=== PATIENT | female | born 1960 | race African-American/Black ===

== ENCOUNTER 2019-09-21 13:37 | Emergency (ER) | payer BC ==
--- NOTE | 2019-09-21 14:42 | RAD REPORT ---
EXAM DESCRIPTION: CT - Head Brain Wo Cont - 09/21/2019 2:32 pm CLINICAL HISTORY: Numbness COMPARISON: 2013 TECHNIQUE: Computed axial tomography of the head was obtained. IV contrast was not requested. All CT scans are performed using dose optimization technique as appropriate and may include automated exposure control or mA/KV adjustment according to patient size. FINDINGS: An intracranial bleed is not seen . The ventricles are normal in caliber. No extra-axial fluid collection is noted. Fluid within the sinuses/ mastoids is not seen. IMPRESSION: No acute intracranial abnormality is seen. If patient's symptoms persist MRI of the bra in would be recommended.
[2019-09-21 15:11] LABS: Absolute Lymphocytes (CBC) 2.2 K/uL (0.7-4.9); Basophils % 0.6 % (0-1.3); Hematocrit 36.7 % (36.0-45.0); Lymphocytes % 24.6 % (15.3-44.8); MPV 7.5 fL (7.6-11.3); RBC Red Blood Cell Count 4.31 M/uL (3.86-4.86)
[2019-09-21 15:23] LABS: Protime INR 0.96
[2019-09-21 15:28] LABS: Potassium 3.8 mmol/L (3.5-5.1)
--- NOTE | 2019-09-21 15:30 | RAD REPORT ---
EXAM DESCRIPTION: RAD - Humerus Right - 09/21/2019 2:48 pm CLINICAL HISTORY: Right arm pain FINDINGS: No fracture is seen osteoporosis. Small calcific density along the superolateral aspect of humerus may indicate calcific tendinitis 5 millimeter lucency within the lateral humeral head is nonspecific. Follow-up x-ray in 3 months fernie mmended to assess stability
[2019-09-21] MEDS ORDERED: CYCLOBENZAPRINE 10 MG TAB ONE (16:02)
[2019-09-21] MEDS ORDERED: KETOROLAC 30 MG/ML INJ ONE (16:03)
[2019-09-21] MEDS ORDERED: cloNIDine HCL 0.1 MG TAB ONE (16:07)
--- NOTE | 2019-09-21 16:52 | EDPHYS ---
Physician Documentation [facility] Name: Carly Buchanan Age: 58 yrs Sex: Female : 1960 Arrival Date: 09/21/2019 Time: 13:41 Bed 14 Private MD: Kamilah Duff H ED Physician Berkley Otero HPI: 09/21 14:18 This 58 yrs old Black Female presents to ER via Ambulatory with complaints of Left Arm pm1 Pain. 14:18 The patient or guardian complains of pain, that is acute. The complaints affect the pm1 left bicep. Context: The problem was sustained at work, resulted from Pulling herself up the stairs . Onset: The symptoms/episode began/occurred this morning, at 10:10. Treatment prior to arrival includes: no previous treatment. Modifying factors: The symptoms are alleviated by remaining still, the symptoms are aggravated by bending arm. Associated signs and symptoms: Pertinent positives: pain, of the left bicep, Pertinent negatives: decreased range of motion, deformity, numbness, swelling, tingling, weakness. Severity of symptoms: in the emergency department the symptoms are actually worse. The patient has not experienced similar symptoms in the past. Patient was walking up the stairs holding a prisoner with her right hand while she was pulling herself up with her left hand. As she was pulling herself up with her left hand she pain to her left lower biceps and a sensation of a marble rolling down her arm. Historical: - Allergies: 13:56 No Known Allergies; aj1 - Home Meds: 13:56 metformin 500 mg Oral tab 1 tab 2 times per day [Active]; glipizide 10 mg Oral tab 1 aj1 tab once daily [Active]; pioglitazone 15 mg oral tab 1 tab once daily [Active]; pravastatin 40 mg oral tab 1 tab once daily [Active]; gabapentin 600 mg oral tab 1 tab 3 times per day [Active]; buspirone 10 mg Oral tab 1 tab 2 times per day [Active]; clonidine HCl 0.2 mg Oral tab 1 tab 2 times per day [Active]; - PMHx: 13:56 Diabetes - NIDDM; Hypertension; Hyperlipidemia; neuropathy; Anxiety; aj1 - Immunization history:: Flu vaccine is not up to date. - Social history:: Smoking status: Patient/guardian denies using tobacco. - Ebola Screening: : Patient denies travel to an Ebola-affected area in the 21 days before illness onset. ROS: 14:18 Constitutional: Negative for fever, chills, and weight loss. pm1 14:18 Eyes: Negative for injury, pain, redness, and discharge, ENT: Negative for injury, pm1 pain, and discharge, Neck: Negative for injury, pain, and swelling, Cardiovascular: Negative for chest pain, palpitations, and edema, Respiratory: Negative for shortness of breath, cough, wheezing, and pleuritic chest pain, Abdomen/GI: Negative for abdominal pain, nausea, vomiting, diarrhea, and constipation, Back: Negative for injury and pain, : Negative for injury, bleeding, discharge, and swelling. 14:18 Skin: Negative for injury, rash, and discoloration, Neuro: Negative for headache, weakness, numbness, tingling, and seizure. 14:18 MS/extremity: Positive for pain, of the left bicep, Negative for decreased range of motion, deformity. Exam: 14:18 Constitutional: This is a well developed, well nourished patient who is awake, alert, pm1 and in no acute distress. Head/Face: Normocephalic, atraumatic. Neck: Trachea midline, no thyromegaly or masses palpated, and no cervical lymphadenopathy. Supple, full range of motion without nuchal rigidity, or vertebral point tenderness. No Meningismus. Chest/axilla: Normal chest wall appearance and motion. Nontender with no deformity. No lesions are appreciated. Cardiovascular: Regular rate and rhythm with a normal S1 and S2. No gallops, murmurs, or rubs. Normal PMI, no JVD. No pulse deficits. Respiratory: Lungs have equal breath sounds bilaterally, clear to auscultation and percussion. No rales, rhonchi or wheezes noted. No increased work of breathing, no retractions or nasal flaring. Abdomen/GI: Soft, non-tender, with normal bowel sounds. No distension or tympany. No guarding or rebound. No evidence of tenderness throughout. Back: No spinal tenderness. No costovertebral tenderness. Full range of motion. Skin: Warm, dry with normal turgor. Normal color with no rashes, no lesions, and no evidence of cellulitis. 14:18 Musculoskeletal/extremity: Extremities: grossly normal except: noted in the focal point pain to distal portion of left bicep: pain reproduced with flexing left biceps and resisting flexion with downward pressure , ROM: intact in all extremities, Circulation is intact in all extremities. Vital Signs: 13:56 BP 216 / 105; Pulse 93; Resp 18; Temp 99.5; Pulse Ox 98% ; Weight 91.63 kg (R); Height aj1 5 ft. 2 in. (157.48 cm) (R); Pain 7/10; 15:18 BP 197 / 106; Pulse 88; Resp 17; Pulse Ox 100% on R/A; rv 13:56 Body Mass Index 36.95 (91.63 kg, 157.48 cm) aj1 MDM: 14:07 Patient medically screened. pm1 15:42 Data reviewed: vital signs. Data interpreted: Pulse oximetry: on room air is 100 %. pm1 Interpretation: normal. 16:04 Counseling: I had a detailed discussion with the patient and/or guardian regarding: the pm1 historical points, exam findings, and any diagnostic results supporting the discharge/admit diagnosis, lab results, radiology results, the need for outpatient follow up, for definitive care, With PCP for BP management. Patient takes her clonidine at night time only instead of BID. Morning dose makes her sleepy so she does not take it, to return to the emergency department if symptoms worsen or persist or if there are any questions or concerns that arise at home. 09/21 14:18 Order name: Basic Metabolic Panel; Complete Time: 15:41 pm1 09/21 14:18 Order name: CBC with Diff; Complete Time: 15:41 pm1 09/21 14:18 Order name: CT Head Brain wo Cont; Complete Time: 15:41 pm1 09/21 14:18 Order name: Humerus Right XRAY; Complete Time: 15:41 pm1 09/21 14:18 Order name: Protime (+inr); Complete Time: 15:41 pm1 09/21 14:18 Order name: Ptt, Activated; Complete Time: 15:41 pm1 09/21 14:18 Order name: EKG; Complete Time: 14:20 pm1 09/21 14:18 Order name: EKG - Nurse/Tech; Complete Time: 14:48 pm1 09/21 14:18 Order name: IV Saline Lock; Complete Time: 15:33 pm1 09/21 14:18 Order name: Labs collected and sent; Complete Time: 15:33 pm1 09/21 16:51 Order name: Sling; Complete Time: 17:46 pm1 Administered Medications: 16:05 Drug: Flexeril 10 mg Route: PO; rv 16:05 Drug: TORadol - Ketorolac 15 mg Route: IVP; Site: right antecubital; rv 16:05 Drug: cloNIDine 0.2 mg Route: PO; rv Disposition: 09/21/19 16:50 Discharged to Home. Impression: Strain of muscle, fascia and tendon of other parts of biceps, left arm, Essential (primary) hypertension. - Condition is Stable. - Discharge Instructions: Hypertension, Muscle Strain, How to Take Your Blood Pressure, [id number], DASH Eating Plan, Managing Your Hypertension. - Prescriptions for Tylenol- Codeine #3 300-30 mg Oral Tablet - take 2 tablets by ORAL route every 6 hours As needed; 20 tablet. Cyclobenzaprine 10 mg Oral Tablet - take 1 tablet by ORAL route every 8 hours As needed; 30 tablet. - Work release form, Medication Reconciliation Form, Thank You Letter, Antibiotic Education, Prescription Opioid Use form. - Follow up: Emergency Department; When: As needed; Reason: Worsening of condition. Follow up: Private Physician; When: 2 - 3 days; Reason: Recheck today's complaints, Continuance of care, Re-evaluation by your physician. - Problem is new. - Symptoms have improved. Addendum: 09/23/2019 15:15 Co-signature as Attending Physician, Berkley Otero MD. m a2 Signatures: Dispatcher [employer] Joelle Mujica RN RN aj1 Corey Burgess NP DRILL HAND pm1 María Bentley RN RN hb Berkley Otero MD MD ma2 Baron Rogers RN RN rv Corrections: (The following items were deleted from the chart) 09/21 17:52 16:50 09/21/2019 16:50 Discharged to Home. Impression: Strain of muscle, fascia and hb tendon of other parts of biceps, left arm; Essential (primary) hypertension. Condition is Stable. Forms are Medication Reconciliation Form, Thank You Letter, Antibiotic Education, Prescription Opioid Use. Follow up: Emergency Department; When: As needed; Reason: Worsening of condition. Follow up: Private Physician; When: 2 - 3 days; Reason: Recheck today's complaints, Continuance of care, Re-evaluation by your physician. Problem is new. Symptoms have improved. pm1
--- NOTE | 2019-09-21 16:52 | ER ---
Nurse's Notes [facility] Name: Carly Buchanan Age: 58 yrs Sex: Female : 1960 Arrival Date: 09/21/2019 Time: 13:41 Bed 14 Private MD: Kamilah Duff H Diagnosis: Strain of muscle, fascia and tendon of other parts of biceps, left arm;Essential (primary) hypertension Presentation: 09/21 13:51 Presenting complaint: Patient states: She was walking up the stairs holding a rail and aj1 suddenly she felt something "like a marble" run up her arm. Patient reports burning pain from the left shoulder down to her left wrist. Reports that the pain started at 10:10, and has gotten progressively worse since then. Transition of care: patient was not received from another setting of care. Onset of symptoms was September 21, 2019. Risk Assessment: Do you want to hurt yourself or someone else? Patient reports no desire to harm self or others. Initial Sepsis Screen: Does the patient meet any 2 criteria? No. Patient's initial sepsis screen is negative. Does the patient have a suspected source of infection? No. Patient's initial sepsis screen is negative. Care prior to arrival: None. 13:51 Method Of Arrival: Ambulatory aj1 13:51 Acuity: EDIN 2 aj1 Triage Assessment: 13:56 General: Appears in no apparent distress. uncomfortable, Behavior is calm, cooperative, aj1 appropriate for age. Pain: Complains of pain in left arm. Neuro: Level of Consciousness is awake, alert, obeys commands. Cardiovascular: Patient's skin is warm and dry. Respiratory: Airway is patent Respiratory effort is even, unlabored, Respiratory pattern is regular, symmetrical. Historical: - Allergies: 13:56 No Known Allergies; aj1 - Home Meds: 13:56 metformin 500 mg Oral tab 1 tab 2 times per day [Active]; glipizide 10 mg Oral tab 1 aj1 tab once daily [Active]; pioglitazone 15 mg oral tab 1 tab once daily [Active]; pravastatin 40 mg oral tab 1 tab once daily [Active]; gabapentin 600 mg oral tab 1 tab 3 times per day [Active]; buspirone 10 mg Oral tab 1 tab 2 times per day [Active]; clonidine HCl 0.2 mg Oral tab 1 tab 2 times per day [Active]; - PMHx: 13:56 Diabetes - NIDDM; Hypertension; Hyperlipidemia; neuropathy; Anxiety; aj1 - Immunization history:: Flu vaccine is not up to date. - Social history:: Smoking status: Patient/guardian denies using tobacco. - Ebola Screening: : Patient denies travel to an Ebola-affected area in the 21 days before illness onset. Screenin:13 Abuse screen: Denies threats or abuse. Denies injuries from another. Nutritional rv screening: No deficits noted. Tuberculosis screening: No symptoms or risk factors identified. Fall Risk None identified. Assessment: 14:12 General: Appears in no apparent distress. comfortable, Behavior is calm, cooperative. rv Pain: Complains of pain in left arm. Neuro: Level of Consciousness is awake, alert, obeys commands, Oriented to person, place, time, situation. Cardiovascular: Patient's skin is warm and dry. Respiratory: Airway is patent. Musculoskeletal: Range of motion: intact in all extremities, Swelling absent. Vital Signs: 13:56 BP 216 / 105; Pulse 93; Resp 18; Temp 99.5; Pulse Ox 98% ; Weight 91.63 kg (R); Height aj1 5 ft. 2 in. (157.48 cm) (R); Pain 7/10; 15:18 BP 197 / 106; Pulse 88; Resp 17; Pulse Ox 100% on R/A; rv 13:56 Body Mass Index 36.95 (91.63 kg, 157.48 cm) aj1 ED Course: 13:41 Patient arrived in ED. mr 13:41 Kamilah Duff DO is Private Physician. mr 13:53 Triage completed. aj1 14:00 Baron Rogers, JOSE is Primary Nurse. rv 14:06 Corey Burgess NP is PHCP. pm1 14:06 Berkley Otero MD is Attending Physician. pm1 14:13 Patient has correct armband on for positive identification. Bed in low position. Call rv light in reach. Side rails up X 1. Pulse ox on. NIBP on. 14:13 Patient placed in the treatment room, on a stretcher, on pulse oximetry, Patient rv notified of wait time. 14:32 CT completed. Patient tolerated procedure well. Patient moved back from CT. mw3 14:34 CT Head Brain wo Cont In Process Unspecified. EDMS 14:51 Humerus Right XRAY In Process Unspecified. EDMS Administered Medications: 16:05 Drug: Flexeril 10 mg Route: PO; rv 16:05 Drug: TORadol - Ketorolac 15 mg Route: IVP; Site: right antecubital; rv 16:05 Drug: cloNIDine 0.2 mg Route: PO; rv Outcome: 16:50 Discharge ordered by MD. pm1 17:52 Patient left the ED. Signatures: Dispatcher [employer] EDMS Joelle Armstrong RN RN aj1 Monica Lindsay mr JeniferCorey, FLOATMAN FLOATMAN pm1 María Bentley RN RN Sudha Sosa mw3 Baron Rogers RN RN rv Corrections: (The following items were deleted from the chart) 14:00 13:51 Acuity: EDIN 3 aj1 aj1
--- NOTE | 2019-09-23 20:51 | EKG ---
Test Date: 2019-09-21 Test Time: 15:06:06 Juice Tester: FESTUS MEASUREMENT RESULTS: Intervals: Rate: 89 MO: 148 QRSD: 74 QT: 382 QTc: 464 [place]: P: 30 MO: 148 QRS: -5 T: 86 INTERPRETIVE STATEMENTS: Normal sinus rhythm Minimal voltage criteria for LVH, may be normal variant Borderline ECG Compared to ECG 05/07/2014 13:44:09 Left ventricular hypertrophy now present Prolonged QT interval no longer present Electronically Signed On 09-23-19 20:47:09 HOOKER LASTER by Geo Alcocer
== END 2019-09-21 17:52 | disposition home or self-care (01) ==
LOC: ER 13:37
DX: S46.212A Strain of muscle, fascia and tendon of other parts of biceps, left arm, initial encounter (principal); X58.XXXA Exposure to other specified factors, initial encounter; I10 Essential (primary) hypertension; E11.9 Type 2 diabetes mellitus without complications; E78.5 Hyperlipidemia, unspecified; F41.9 Anxiety disorder, unspecified
CPT/HCPCS: 36415; 70450; 80048; 85025; 85610; 85730; 93005; 96374; 99284

== ENCOUNTER 2020-03-01 21:04 | Emergency (ER) | payer BC ==
--- OUTSIDE RECORDS SUMMARY | 2020-03-01 21:06 | XMS REPORT | Clinical Summary ---
:1960 Author Organization [facility] Address [address] [place] [address] Care Team Providers Name Role Phone DuffDamion hylton Primary Care Provider Allergies No Known Allergies Medications Medication Sig Dispensed Refills Start Date End Date Status pravastatin 0 08/20/2018 Active (PRAVACHOL) 40 MG tablet lisinopril-hydrochloro 0 08/20/2018 Active thiazide (PRINZIDE,ZESTORETIC) 20-12.5 mg per tablet diclofenac (VOLTAREN) Apply 2 g 1 Tube 2 10/04/2018 Active 1 % gel topically 4 (four) times a day. Apply 2 gms to affected area 4 times a day metformin HCl Take by mouth. 0 A ctive (METFORMIN ORAL) GABAPENTIN ORAL Take by mouth. 0 Active GLIPIZIDE ORAL Take by mouth. 0 Active pioglitazone HCl Take by mouth. 0 Active (PIOGLITAZONE ORAL) cyanocobalamin, Take by mouth. 0 Active vitamin B-12, (B-12 DOTS ORAL) BIOTIN ORAL Take by mouth. 0 Act dannie cholecalciferol, Take 2,000 Units 0 Active vitamin D3, (VITAMIN by mouth daily. D3) 2,000 unit capsule capsule vitamin E acetate Take by mouth. 0 Active (VITAMIN E ORAL) CALCIUM ORAL Take by mouth. 0 Ac tive SIMETHICONE ORAL Take by mouth. 0 Active Active Problems Problem Noted Date Carpal tunnel syndrome of right wrist 01/01/2019 Overview: Added automatically from request for shkaa lazaro [id number] Family History Relation Name Status Comments Father Mother Social History Tobacco Use Types Packs/Day Years Used Date Never Smoker Smokeless Tobacco: Never Used Alcohol Use Drinks/Week oz/Week Comments No Alcohol Habits Answer Date Recorded How often do you have a drink containing alcohol? Never 10/04/2018 How many drinks containing alcohol do you have on a typical Not asked day when you are drinking? How often do you have six or more drinks on one occasion? No t asked Sex Assigned at Date Recorded Not on file Job Start Date Occupation Industry Not on file Not on file Not on file Travel History Travel Start Travel End No recent travel history available. Last Filed Vital Signs Not on file Plan of Treatment Health Maintenance Due Date Last Done Comments CERVICAL CANCER SCREENING 1980 BREAST CANCER SCREENING 2009 COLONOSCOPY SCREENING 2009 SHINGLES VACCINES (#1) 2009 INFLUENZA VACCINE 05/02/2020 Results Not on fileafter 03/01/2019 [phone] [address] MBERCLEONARDO Gage y [address] ([address]) [address], [place] [address] Advance Directives For more information, please contact: [phone] Type Date Recorded Patient Tripe Scraper Explanati on Advance Directives, 01/01/2019 4:14 PM Living Will and Medical Power of Farm Boss
[2020-03-01 21:58] LABS: Urine Blood NEGATIVE (NEG); Urine Glucose TRACE (NEG); Urine Protein NEGATIVE (NEG)
[2020-03-01 22:08] LABS: Absolute Lymphocytes (CBC) 2.7 K/uL (0.7-4.9); Basophils % 0.6 % (0-1.3); Hematocrit 33.1 % (36.0-45.0); Lymphocytes % 40.4 % (15.3-44.8); MPV 7.6 fL (7.6-11.3); RBC Red Blood Cell Count 3.83 M/uL (3.86-4.86)
[2020-03-01 22:26] LABS: ALT/SGPT 15 U/L (12-78); AST/SGOT 18 U/L (15-37); Albumin 3.3 g/dL (3.4-5.0); Alkaline Phosphatase 88 U/L (45-117); BUN Blood Urea Nitrogen 22 mg/dL (7-18); Bicarbonate 30 mmol/L (21-32); Bilirubin Direct < 0.1 mg/dL (0-0.2); Bilirubin Total 0.2 mg/dL (0.2-1.0); Glucose Level 194 mg/dL (74-106); Lipase 119 U/L (73-393); Potassium 3.3 mmol/L (3.5-5.1); Protein, Total 7.1 g/dL (6.4-8.2); Sodium Level 137 mmol/L (136-145)
[2020-03-01] MEDS ORDERED: MORPHINE 4 MG/ML SYR ONE (23:17)
[2020-03-01] MEDS ORDERED: ONDANSETRON 4 MG/2 ML VIAL ONE (23:17)
[2020-03-01] MEDS ORDERED: POTASSIUM CL SA 10 MEQ TAB PO ONE (23:17)
[2020-03-02 00:44] VITALS: TEMP 97.3
[2020-03-02 00:46] VITALS: BP 149/88; O2SAT 98
--- NOTE | 2020-03-02 16:02 | RAD REPORT ---
EXAM DESCRIPTION: CT - Abdomen Pelvis W Contrast - 03/02/2020 12:41 am CLINICAL HISTORY: ABD PAIN COMPARISON: None Available. TECHNIQUE: CT of the abdomen and pelvis performed following IV administration of iodinated contrast. FINDINGS: Lung Bases: The visualized lung bases are clear. Bones: Multilevel endplate spondylosis, facet arthropathy, disc height narrowing of the visualized th oracic and lumbar spine. Moderate degenerative change of the hips. Visualized right ribs are intact. Abdomen: Liver: The liver has normal size and density. No intrahepatic biliary dilatation. Gallbladder: No calcified gallstones. Spleen, Pancreas, and Adrenal Glands: The spleen, pancreas, and adrenal glands are unremarkable. Kidneys: No hydronephrosis or obstructing calculus. Nonobstructing left nephrolithiasis. Vasculature: Aortoiliac atherosclerosis. IVC The portal vein is patent. The proximal visceral and r enal arteries are patent. Stomach: The stomach and duodenum have normal course. Other: No free intraperitoneal air. No free fluid or lymphadenopathy. Pelvis: Bladder: Urinary bladder is unremarkable. Bowel: No dilated loops of large or small bowel. Appendix: Normal appendix. Pelvis: Uterus is not enlarged. IMPRESSION: 1. No acute inflammatory or obstructive process identified. 2. Punctate nonobstructing left nephrolithiasis. This exam was performed according to our departmental dose-optimization program, which includes autom ated exposure control, adjustment of the mA and/or kV according to patient size and/or use of iterati ve reconstruction technique. Electronically signed by: Ayden Gerardo 03/01/2020 11:37 PM CDT Due to temporary technical issues with the PACS/Fluency reporting system, reports are being signed by the in house radiologistwithout review asa courtesy toensure prompt reporting. The interpreting radi ologist is fully responsible for the content of the report.
--- NOTE | 2020-03-02 19:31 | EDPHYS ---
Physician Documentation [facility] Name: Carly Buchanan Age: 59 yrs Sex: Female : 1960 Arrival Date: 03/01/2020 Time: 21:06 Bed 6 Private MD: ED Physician James Spence HPI: 03/01 22:20 This 59 yrs old Black Female presents to ER via Ambulatory with complaints of Side Pain pkl rt side. 22:20 The patient presents with abdominal pain right mid abdomen. Onset: The symptoms/episode pkl began/occurred 2.5 week(s) ago. The symptoms do not radiate. Associated signs and symptoms: none. Historical: - Allergies: 21:24 No Known Allergies; ca1 - PMHx: 21:24 Anxiety; Diabetes - NIDDM; Hyperlipidemia; Hypertension; neuropathy; ca1 - Immunization history:: Adult Immunizations up to date. - Social history:: Smoking status: Patient denies any tobacco usage or history of. ROS: 22:20 Eyes: Negative for injury, pain, redness, and discharge, ENT: Negative for injury, pkl pain, and discharge, Neck: Negative for injury, pain, and swelling, Cardiovascular: Negative for chest pain, palpitations, and edema, Respiratory: Negative for shortness of breath, cough, wheezing, and pleuritic chest pain. 22:20 Abdomen/GI: Positive for abdominal pain, of the right mid abdomen. 22:20 Back: Negative for injury or acute deformity, acute changes. 22:20 : Negative for urinary symptoms. 22:20 MS/extremity: Negative for acute changes. 22:20 Skin: Negative for rash. 22:20 Neuro: Negative for altered mental status. Exam: 22:20 Head/Face: Normocephalic, atraumatic. Eyes: Pupils equal round and reactive to light, pkl extra-ocular motions intact. Lids and lashes normal. Conjunctiva and sclera are non-icteric and not injected. Cornea within normal limits. Periorbital areas with no swelling, redness, or edema. ENT: Nares patent. No nasal discharge, no septal abnormalities noted. Tympanic membranes are normal and external auditory canals are clear. Oropharynx with no redness, swelling, or masses, exudates, or evidence of obstruction, uvula midline. Mucous membranes moist. Neck: Trachea midline, no thyromegaly or masses palpated, and no cervical lymphadenopathy. Supple, full range of motion without nuchal rigidity, or vertebral point tenderness. No Meningismus. Chest/axilla: Normal chest wall appearance and motion. Nontender with no deformity. No lesions are appreciated. Cardiovascular: Regular rate and rhythm with a normal S1 and S2. No gallops, murmurs, or rubs. Normal PMI, no JVD. No pulse deficits. Respiratory: Lungs have equal breath sounds bilaterally, clear to auscultation and percussion. No rales, rhonchi or wheezes noted. No increased work of breathing, no retractions or nasal flaring. Back: No spinal tenderness. No costovertebral tenderness. Full range of motion. Skin: Warm, dry with normal turgor. Normal color with no rashes, no lesions, and no evidence of cellulitis. MS/ Extremity: Pulses equal, no cyanosis. Neurovascular intact. Full, normal range of motion. Neuro: Awake and alert, GCS 15, oriented to person, place, time, and situation. Cranial nerves II-XII grossly intact. Motor strength 5/5 in all extremities. Sensory grossly intact. Cerebellar exam normal. Normal gait. 22:20 Abdomen/GI: Bowel sounds: normal, Palpation: soft, mild abdominal tenderness, in the posterior aspect of right lateral abdomen. Vital Signs: 21:20 BP 154 / 93; Pulse 89; Resp 16 S; Temp 97.3(TE); Pulse Ox 100% on R/A; Weight 91.17 kg ca1 (R); Height 5 ft. 2 in. (157.48 cm) (R); Pain 8/10; 23:44 BP 147 / 71; Pulse 78; Resp 18; Pulse Ox 99% on R/A; mg2 03/02 00:37 BP 149 / 88; Pulse 80; Resp 18; Pulse Ox 98% ; ea 03/01 21:20 Body Mass Index 36.76 (91.17 kg, 157.48 cm) ca1 MDM: 03/01 21:52 Patient medically screened. pkl 03/02 00:03 Data reviewed: vital signs, nurses notes, lab test result(s), radiologic studies, CT pkl scan. ED course: Patient feeling better. Discussed lab. and CT Scan results with patient. Advised to follow up with PCP in 2 to 3 days. Patient understood instructions. 03/01 21:54 Order name: Basic Metabolic Panel; Complete Time: 23:08 03/01 21:54 Order name: CBC with Diff; Complete Time: 23:08 03/01 21:54 Order name: Hepatic Function; Complete Time: 23:08 03/01 21:54 Order name: Lipase; Complete Time: 23:08 03/01 21:54 Order name: Urine Dipstick--Ancillary (enter results); Complete Time: 22:03 mn 03/01 22:04 Order name: CT Abd/Pelvis - IV Contrast Only pkl 03/01 21:54 Order name: IV Saline Lock; Complete Time: 22:04 03/01 21:54 Order name: Labs collected and sent; Complete Time: :04 Administered Medications: 03/01 23:15 Drug: morphine 4 mg Route: IVP; Site: right antecubital; mg2 03/02 00:30 Follow up: Response: No adverse reaction; Pain is decreased; RASS: Alert and Calm (0) 03/01 23:15 Drug: Zofran (Ondansetron) 4 mg Route: IVP; Site: right antecubital; mg2 03/02 00:30 Follow up: Response: No adverse reaction 03/01 23:15 Drug: Potassium Chloride 20 mEq Route: PO; mg2 03/02 00:30 Follow up: Response: No adverse reaction Disposition: 03/02/20 00:06 Discharged to Home. Impression: Abdominal pain. - Condition is Stable. - Prescriptions for Ultram 50 mg Oral Tablet - take 1 tablet by ORAL route every 8 hours As needed; 12 tablet. - Work release form, Medication Reconciliation Form, Thank You Letter, Antibiotic Education, Prescription Opioid Use form. - Follow up: Private Physician; When: 2 - 3 days; Reason: Re-evaluation by your physician. - Problem is new. - Symptoms have improved. Signatures: Dispatcher [employer] EDMS James Spence MD MD pkl Antunez, Elena, RN RN ea Gardose, Michele RN JOSE mg2 Evelia Demarco RN RN ca1 Corrections: (The following items were deleted from the chart) 00:38 00:06 03/02/2020 00:06 Discharged to Home. Impression: Abdominal pain. Condition is ea Stable. Forms are Medication Reconciliation Form, Thank You Letter, Antibiotic Education, Prescription Opioid Use. Follow up: Private Physician; When: 2 - 3 days; Reason: Re-evaluation by your physician. Problem is new. Symptoms have improved. pkl
--- NOTE | 2020-03-02 19:31 | ER ---
Nurse's Notes [facility] Name: Carly Buchanan Age: 59 yrs Sex: Female : 1960 Arrival Date: 03/01/2020 Time: 21:06 Bed 6 Private MD: Diagnosis: Abdominal pain Presentation: 03/01 21:20 Chief complaint: Patient states: Pain on the R side below rib cage since 2.5 weeks. ca1 Worst in the morning. Pt states, "the pain is like indigestion and gas", "tonight I couldn't get comfortable and I couldn't sleep from the pain". Denies radiating pain. Denies urinary symptoms. Denies N/V/diarrhea/fever. Coronavirus screen: Proceed with normal triage. Patient denies a cough. Patient denies shortness of breath or difficulty breathing. Patient denies measured and/or subjective temperature greater than 100.4F prior to today's visit. Patient denies travel on a cruise ship or to a country the [facility] currently lists as an affected area. Patient denies contact with known and/or suspected case of COVID-19. Ebola Screen: Patient negative for fever greater than or equal to 101.5 degrees Fahrenheit, and additional compatible Ebola Virus Disease symptoms Patient denies exposure to infectious person. Patient denies travel to an Ebola-affected area in the 21 days before illness onset. No symptoms or risks identified at this time. Initial Sepsis Screen: Does the patient meet any 2 criteria? No. Patient's initial sepsis screen is negative. Does the patient have a suspected source of infection? No. Patient's initial sepsis screen is negative. Risk Assessment: Do you want to hurt yourself or someone else? Patient reports no desire to harm self or others. Onset of symptoms was March 01, 2020. 21:20 Method Of Arrival: Ambulatory ca1 21:20 Acuity: EDIN 3 ca1 Historical: - Allergies: 21:24 No Known Allergies; ca1 - PMHx: 21:24 Anxiety; Diabetes - NIDDM; Hyperlipidemia; Hypertension; neuropathy; ca1 - Immunization history:: Adult Immunizations up to date. - Social history:: Smoking status: Patient denies any tobacco usage or history of. Screenin:49 Abuse screen: Denies threats or abuse. Nutritional screening: No deficits noted. ea Tuberculosis screening: No symptoms or risk factors identified. Fall Risk None identified. Assessment: 21:51 General: Appears uncomfortable, Behavior is appropriate for age. Pain: Complains of ea pain in posterior aspect of right lateral abdomen. Neuro: Level of Consciousness is awake, alert, obeys commands, Oriented to person, place, time. Cardiovascular: Respiratory: Airway is patent Respiratory effort is even, unlabored, Respiratory pattern is regular, symmetrical. GI: Patient currently denies diarrhea, nausea, vomiting. Derm: Skin is pink, warm \\T\\ dry. 23:06 Reassessment: Patient appears in no apparent distress at this time. No changes from mg2 previously documented assessment. Patient and/or family updated on plan of care and expected duration. Pain level reassessed. patient just came back from ct scan. 03/02 00:34 Reassessment: Patient and/or family updated on plan of care and expected duration. Pain ea level reassessed. Patient is alert, oriented x 3, equal unlabored respirations, skin warm/dry/pink. Discharge instruction given to patient, verbalized the understanding of instruction. Pt left ED ambulatory tolerating well. Vital Signs: 03/01 21:20 BP 154 / 93; Pulse 89; Resp 16 S; Temp 97.3(TE); Pulse Ox 100% on R/A; Weight 91.17 kg ca1 (R); Height 5 ft. 2 in. (157.48 cm) (R); Pain 8/10; 23:44 BP 147 / 71; Pulse 78; Resp 18; Pulse Ox 99% on R/A; mg2 03/02 00:37 BP 149 / 88; Pulse 80; Resp 18; Pulse Ox 98% ; ea 03/01 21:20 Body Mass Index 36.76 (91.17 kg, 157.48 cm) ca1 ED Course: 03/01 21:06 Patient arrived in ED. bp1 21:24 Triage completed. ca1 21:24 Arm band placed on right wrist. ca1 21:49 Marely Draper, JOSE is Primary Nurse. ea 21:49 Patient has correct armband on for positive identification. Bed in low position. Call ea light in reach. 21:52 James Spence MD is Attending Physician. pkl 21:55 Inserted saline lock: 20 gauge in right antecubital area, using aseptic technique. mg2 Blood collected. 22:04 No provider procedures requiring assistance completed. mg2 23:15 CT Abd/Pelvis - IV Contrast Only In Process Unspecified. EDMS 03/02 00:20 IV discontinued, intact, bleeding controlled, No redness/swelling at site. Pressure ea dressing applied. Administered Medications: 03/01 23:15 Drug: morphine 4 mg Route: IVP; Site: right antecubital; mg2 03/02 00:30 Follow up: Response: No adverse reaction; Pain is decreased; RASS: Alert and Calm (0) ea 03/01 23:15 Drug: Zofran (Ondansetron) 4 mg Route: IVP; Site: right antecubital; mg2 03/02 00:30 Follow up: Response: No adverse reaction ea 03/01 23:15 Drug: Potassium Chloride 20 mEq Route: PO; mg2 03/02 00:30 Follow up: Response: No adverse reaction ea Outcome: 00:06 Discharge ordered by . pkcruz 00:35 Discharged to home ambulatory, with family. ea 00:35 Condition: stable 00:35 Discharge instructions given to patient, Instructed on discharge instructions, follow up and referral plans. medication usage, Demonstrated understanding of instructions, follow-up care, medications, Prescriptions given X 1. 00:38 Patient left the ED. ea Signatures: Dispatcher [employer] EDMS James Spence MD MD pkl Antunez, Elena RN Curly Gaines ea, RN RN mg2 Acob, Cheryl RN RN Sosa Joyce
== END 2020-03-02 00:38 | disposition home or self-care (01) ==
LOC: ER 21:04
DX: R10.31 Right lower quadrant pain (principal); I10 Essential (primary) hypertension
CPT/HCPCS: 85025; 80048; 36415; 80076; 81003; 83690; 74177; 96375; 96374; 99284; J2405